=== PATIENT | female | born 1970 | race Caucasian/White ===

== ENCOUNTER 2018-07-18 19:13 | Emergency (ER) | payer OTHER ==
[~2018-07-18] VITALS: Ht 175.3 cm; Wt 68.0 kg
[2018-07-18] MEDS ORDERED: BENADRYL25 MG PO (19:27)
[2018-07-18 21:20] VITALS: BP 145/98
== END 2018-07-18 21:20 | disposition home or self-care (01) ==
LOC: M.ERS 19:13
DX: R51 Headache (principal)